=== PATIENT | female | born 1960 | race Caucasian/White ===

== ENCOUNTER 2019-05-08 12:12 | Outpatient (CLI) | payer BC ==
--- NOTE | 2019-05-08 13:30 | CT ---
CT ABDOMEN AND PELVIS WITH IV CONTRAST 05/08/2019 CLINICAL INFORMATION: Pulmonary nodule on CT of the chest at outside institution. Sharp right-sided abdominal pain. COMPARISON: None. Technique: Multiple contiguous axial CT images are obtained through the abdomen and pelvis with IV contrast. Cor onal reformatted images are provided. FINDINGS: Lower Chest: There is a less than 4 mm nodular density seen at the right lung base which appears pleu ral-based along the major fissure. No additional pulmonary nodule or mass is seen in either lung base. There is mild dependent bibasilar atelectasis. There is an enlarged incompletely imaged subcari nal lymph node measuring 2 cm in short axis dimension. Vessels: Mild vascular calcifications are seen in the abdominal aorta. Abdomen: Portal vein:Patent Gallbladder: Within normal limits for CT imaging. Liver: within normal limits. Spleen: Single punctate calcified granuloma is identified. Pancreas: within normal limits. Adrenals: within normal limits. Kidneys: A 1.9 cm inferior pole left renal cystic lesion is seen which demonstrates an attenuation co efficient compatible with fluid suggesting a cyst. Kidneys otherwise demonstrate a normal CT appearance bilaterally. Bowel: Normal caliber. Appendix: The appendix is visualized and normal in caliber. Peritoneum: No ascites or free air; no fluid collection. Mesentery and Retroperitoneum: No enlarged mesenteric or retroperitoneal lymph nodes. Abdominal Wall: within normal limits. Pelvis: Reproductive Organs: No pelvic masses. Pelvis within normal limits. Bladder: within normal limits. Bones: Degenerative changes are seen in the spine. No lytic or sclerotic osseous lesions are seen. IMPRESSION: 1. Mildly enlarged subcarinal lymph node incompletely imaged measuring 2 cm in short axis dimension. 2. Left renal cyst. 3. Tiny less than 4 mm pleural-based pulmonary nodule right lower lobe adjacent to the major fissure. This may represent a intrapleural lymph node. No additional pulmonary nodule or mass is seen in either lung base. 4. No acute findings are seen in the abdomen or pelvis.
[2019-05-08] MEDS ORDERED: Iopamidol 370 76% 100 ML VIAL ONE (16:05)
== END 2019-05-08 12:13 | disposition home or self-care (01) ==
LOC: CT 12:12
PROVIDERS: ATTEND Internal Medicine Hematology & Oncology
DX: R93.89 Abnormal findings on diagnostic imaging of other specified body structures (principal); D50.8 Other iron deficiency anemias; R59.0 Localized enlarged lymph nodes; N28.1 Cyst of kidney, acquired; R91.1 Solitary pulmonary nodule
CPT/HCPCS: 74177; 82565; Q9967

== ENCOUNTER 2019-07-27 09:50 | Outpatient (CLI) | payer BC ==
--- NOTE | 2019-07-27 11:09 | CT ---
CT CHEST WITH CONTRAST: HISTORY: Follow up pulmonary nodule. COMPARISON: 04/22/2019 CORRELATION: Abdomen/pelvis CT from 05/08/2019. FINDINGS: Lower neck and axilla: Unremarkable. Mediastinum: Redemonstration of enlarged mediastinal lymph nodes. Enlarged right paratracheal lymph n ode measures 1.3 x 2.1 cm. Enlarged subcarinal lymph node measures 1.9 x 1.9 cm. Enlarged right hilar lymph node measures 1.9 x 1.6 cm. Heart: Normal size. No pericardial effusion. Aorta: Visualized aorta has a normal caliber. Upper abdomen: No acute abnormality. Trachea and central bronchi: Patent. Pleural space: No pleural effusion. Pneumothorax: None. Osseous structures: No acute abnormality. Right lung: Dependent atelectatic changes. Stable 3 mm nodule in the anterior aspect of the right low er lobe. Stable ill defined opacity the medial aspect of the right lower lobe currently measuring 1.4 x 0.8 cm along its superior aspect (previously measuring 1.7 x 0.9 cm). Though the superior compo nent is stable, the more inferior component appears to have progressed and measures 1.5 x 0.9 cm. There is an enlarging nodule abutting the right heart border measuring 0.5 x 0.7 cm. Previously this nodule measured 0.5 x 0.4 cm. Left lung: Small bleb in the left upper lobe is redemonstrated. There is thickening along the major f issure, new since the previous examination. Focal nodularity along the left major fissure measures 1.1 x 0.5 cm. Enlarging 1.1 x 0.9 cm nodule at the posterior aspect of the left lower lobe, abutting the posterior mediastinum. IMPRESSION: Interval development of multiple lung parenchymal nodules. There is a new nodule adjacent to the left major fissure. There is an enlarging nodule along the right heart border and along the posterior aspect of the left lower lobe, abutting the posterior mediastinum. Ill defined opacity in the right l ower lobe appears to have also increased in size. Further evaluation with PET imaging may be beneficial. The previously noted nodule abutting the right major fissure is stable. Transcribed Date/Time: 07/27/2019 11:19 AM
[2019-07-27] MEDS ORDERED: Iopamidol 370 76% 100 ML VIAL ONE (12:20)
== END 2019-07-27 09:51 | disposition home or self-care (01) ==
LOC: CT 09:50
PROVIDERS: ATTEND Internal Medicine Hematology & Oncology
DX: R91.8 Other nonspecific abnormal finding of lung field (principal); D50.8 Other iron deficiency anemias; R93.89 Abnormal findings on diagnostic imaging of other specified body structures
CPT/HCPCS: 71260; 82728; Q9967

== ENCOUNTER 2019-11-11 09:19 | Outpatient (CLI) | payer BC ==
--- NOTE | 2019-11-11 09:44 | CT ---
EXAM: CT of the chest without contrast HISTORY: Pulmonary nodule follow-up COMPARISON: 07/19/2019, 04/22/2019 TECHNIQUE: Multiple contiguous axial images were obtained in a CT the chest without contrast. Coronal and sagittal reformats were performed. FINDINGS: HEART: Normal in size without focal cardiac abnormality MEDIASTINUM: No hilar or mediastinal lymphadenopathy. Evaluation of the mediastinum is limited withou t IV contrast. LUNGS: Scarring is seen adjacent to an osteophyte in the right lower lobe. There is an area of scarri ng in the anterior aspect of the left lower lobe adjacent to the diaphragm. A 4 mm stable peripheral nodule is seen along the mediastinum in the right upper lobe on image 72 of 149. There is a linear area of increased soft tissue density measuring 1.2 cm in length that is stable along the left major fissure. A calcified granuloma is seen in the right lower lobe. No new pulmonary nodules a re seen. PLEURAL SPACE: No pneumothorax or pleural effusion. CHEST WALL SOFT TISSUES: Unremarkable OSSEOUS STRUCTURES: Unremarkable VISUALIZED SUBDIAPHRAGMATIC STRUCTURES: Unremarkable IMPRESSION: Stable scattered pulmonary nodules.
== END 2019-11-11 09:20 | disposition home or self-care (01) ==
LOC: BICCT 09:19
PROVIDERS: ATTEND Internal Medicine Critical Care Medicine
DX: R91.1 Solitary pulmonary nodule (principal); R91.8 Other nonspecific abnormal finding of lung field
CPT/HCPCS: 71250

== ENCOUNTER 2020-08-16 09:57 | Outpatient (CLI) | payer BC ==
--- NOTE | 2020-08-16 10:40 | CT ---
EXAM: CT of the chest without contrast HISTORY: Pulmonary nodules COMPARISON: 11/11/2019, 07/27/2019, 04/22/2019 TECHNIQUE: Multiple contiguous axial images were obtained in a CT the chest without contrast. Coronal and sagittal reformats were performed. FINDINGS: HEART: Normal in size without focal cardiac abnormality MEDIASTINUM: No hilar or mediastinal lymphadenopathy. Evaluation of the mediastinum is limited withou t IV contrast. LUNGS: No focal infiltrates. Stable right lower lobe scarring is seen medially. There is a calcified granuloma in the right lower lobe. The previously seen area of nodularity adjacent to the mediastinum in the right middle lobe has basically resolved with a small area of linear scarring in t his location. No significant nodularity is seen in this location on image 73 of 152. Area of increased density along the left major fissure has also decreased in size and now measures 5 mm in gr eatest dimension on image 67 of 152. PLEURAL SPACE: No pneumothorax or pleural effusion. CHEST WALL SOFT TISSUES: Unremarkable OSSEOUS STRUCTURES: Degenerative changes in the spine. VISUALIZED SUBDIAPHRAGMATIC STRUCTURES: Unremarkable IMPRESSION: Resolution and/or significant improvement in previously seen pulmonary nodules. No suspicious pulmona ry nodules are seen on today's examination.
== END 2020-08-16 09:58 | disposition home or self-care (01) ==
LOC: BICCT 09:57
PROVIDERS: ATTEND Internal Medicine Critical Care Medicine
DX: R91.8 Other nonspecific abnormal finding of lung field (principal)
CPT/HCPCS: 71250